=== PATIENT | male | born 1955 | race African-American/Black ===

== ENCOUNTER 2023-10-22 10:23 | Emergency (ER) | payer OTHER ==
[~2023-10-22] VITALS: Ht 190.5 cm; Wt 89.4 kg
[2023-10-22 10:25] VITALS: BP_SYST 142; PULSE 82; RESP 18; TEMP 97.2; O2SAT 99
[2023-10-22] MEDS ORDERED: DIPH28.34 TP (12:13)
[2023-10-22] MEDS ORDERED: HYDC2.5% TP (12:13)
== END 2023-10-22 12:22 | disposition home or self-care (01) ==
LOC: SED 10:23
DX: L30.9 Dermatitis, unspecified (principal); Z88.1 Allergy status to other antibiotic agents; Z79.899 Other long term (current) drug therapy
CPT/HCPCS: 99282